=== PATIENT | male | born 1965 | race Caucasian/White ===

== ENCOUNTER 2023-07-30 06:15 | Day surgery (SDC) | payer BC, SELFPAY ==
[2023-07-30 10:40] VITALS: BMI 28.0
[2023-07-30 10:45] VITALS: BP 164/85
[2023-07-30 10:57] VITALS: BMI 28.0
[2023-07-30 12:57] VITALS: BP 163/77
[2023-07-30 13:00] VITALS: BP 153/76
== END 2023-07-30 13:20 | disposition home or self-care (01) ==
LOC: GI 06:15
PROVIDERS: ATTENDING PHYSICIAN Internal Medicine Gastroenterology
DX: C18.8 Malignant neoplasm of overlapping sites of colon (principal); D12.7 Benign neoplasm of rectosigmoid junction; K64.9 Unspecified hemorrhoids
CPT/HCPCS: 45349; 88305; 88342

== ENCOUNTER 2024-03-08 06:51 | Day surgery (SDC) | payer BC, SELFPAY ==
[2024-03-08 11:22] VITALS: BMI 28.9
[2024-03-08 11:35] VITALS: BMI 28.9
[2024-03-08 11:36] VITALS: BP 122/92
[2024-03-08 13:45] VITALS: BP 147/67
[2024-03-08 13:54] VITALS: BP 148/74
[2024-03-08 14:08] VITALS: BP 156/84
== END 2024-03-08 14:23 | disposition home or self-care (01) ==
LOC: SDS 06:51
PROVIDERS: ATTENDING PHYSICIAN Internal Medicine Gastroenterology
DX: Z12.11 Encounter for screening for malignant neoplasm of colon (principal); K63.89 Other specified diseases of intestine; K64.0 First degree hemorrhoids; Z85.038 Personal history of other malignant neoplasm of large intestine; Z98.890 Other specified postprocedural states; Z86.0101 Personal history of adenomatous and serrated colon polyps
CPT/HCPCS: 45380; 88305